=== PATIENT | male | born 1965 | race Hispanic/Latino ===

== ENCOUNTER 2018-10-01 09:43 | Outpatient (CLI) | payer BC ==
--- NOTE | 2018-10-01 12:27 | RAD ---
LUMBAR SPINE: INDICATIONS: Low back pain. Lumbar radiculopathy. TECHNIQUE: Four views obtained. An AP view, along with lateral views with neutral, flexion, and extension posit ions, obtained. FINDINGS: Lumbar vertebrae maintain normal height and alignment. Disk spaces are normally maintained. There i s mild degenerative spurring, and there is mild facet hypertrophy present. No evidence of spondyloli sthesis. No significant change in alignment with flexion or extension. IMPRESSION: There are mild degenerative changes of the lumbar spine. Alignment is normally maintained. POS: [facility]
--- NOTE | 2018-10-01 15:38 | MRI ---
MRI LUMBAR SPINE: 10/01/2018 HISTORY: Low back pain. Lumbar radiculopathy. TECHNIQUE: Multiplanar, multisequence MR imaging of the lumbar spine is obtained without contrast. FINDINGS: Sagittal STIR imaging demonstrates no focal area of osseous marrow edema. There is no significant anterolisthesis or retrolisthesis noted within the lumbar spine. On the basi s of five lumbar type vertebral bodies, the conus medullaris terminates at T12-L1. T12-L1: Intervertebral disk height and signal intensity appear within normal limits with no signific ant central canal or neural foraminal stenosis. L1-L2: Intervertebral disk height and signal intensity is within normal limits with no significant c entral canal or neural foraminal stenosis. L2-L3: There is mild bilateral facet hypertrophy. Intervertebral disk height and signal intensity a re within normal limits. No significant central canal or neural foraminal stenosis. L3-L4: Mild bilateral facet hypertrophy. No significant central canal or neural foraminal stenosis. L4-L5: Intervertebral disk height and signal intensity appear within normal limits. There is a smal l central disk protrusion with no associated central canal stenosis. There is bilateral facet hypert rophy with mild bilateral neural foraminal stenosis, right greater than left. L5-S1: There is disk space narrowing and disk desiccation. No significant central canal stenosis. There is bilateral facet hypertrophy with mild/moderate bilateral neural foraminal stenosis, left gre ater than right. The imaged retroperitoneal structures appear grossly unremarkable. Benign hemangioma noted in the L3 vertebral body. IMPRESSION: Lower lumbar spine degenerative change, as detailed above, most prominent at L5-S1 and, to a lesser d egree, at L4-L5. POS: [facility]
--- NOTE | 2018-10-01 16:03 | MRI ---
MRI THORACIC SPINE WITHOUT CONTRAST: HISTORY: Thoracic spine pain. COMPARISON: None. FINDINGS: There is overall appropriate T1 marrow signal intensity of the thoracic vertebrae. There is intrinsi c T1 and T2 hyperintensity along the inferior end plate of T7 without evidence of edema suggesting ty pe II Modic change. Additionally, there is subtle T1 and T2 hyperintensity without significant edema along the superior end plate of T8-T9. Small remote Schmorl's node is favored. There appears to be a small focus of acute edema in the anterior inferior aspect of T10. There is an acute Schmorl's no de with moderate loss of vertebral body height at T8. There is associated minimal edema. No signifi cant retropulsion. Visualized mediastinal structures, lung parenchyma, and solid organs are unremarkable. Probable para pelvic cyst in the left renal pelvis. The thoracic cord has a normal size and signal intensity. There is no significant central canal sten osis. No significant neural foraminal narrowing. Conus medullaris terminates at the superior aspect of L1. At T7-T8, there is minimal left and right paracentral disk bulge. No significant central canal steno sis. IMPRESSION: 1. No significant central canal stenosis or foraminal narrowing throughout the thoracic spine. 2. Probable acute Schmorl's node with mild edema at the T8 vertebral body level. Additional chronic findings as above. Minimal end plate irregularity and edema at the inferior anterior aspect of T10. POS: [facility]
== END 2018-10-01 09:44 | disposition home or self-care (01) ==
LOC: TBSIIMAG 09:43
PROVIDERS: ATTEND Physician Assistant Surgical
DX: M54.5 Low back pain (principal); M47.26 Other spondylosis with radiculopathy, lumbar region; M51.44 Schmorl's nodes, thoracic region
CPT/HCPCS: 72110; 72146; 72148

== ENCOUNTER 2018-12-03 17:40 | Emergency (ER) | payer BC ==
[2018-12-03 18:33] LABS: #Basophils 0.1 thou/uL (0.0-0.2); #Eosinphils 0.2 thou/uL (0.0-0.7); #Lymphocytes 2.7 thou/uL (1.20-3.40); #Monocytes 0.7 thou/uL (0.11-0.59); #Neutrophils 6.1 thou/uL (1.40-6.50); %Basophils 0.9 % (0.0-1.0); %Eosinophils 2.4 % (0.0-10.0); %Lymphocytes 27.2 % (21.0-51.0); %Monocytes 7.2 % (0.0-10.0); %Neutrophils 62.3 % (42.0-75.0); Hemoglobin 15.7 g/dL (14.0-18.0); Mean Corpuscular HGB CONC 34.8 g/dL (32.0-36.0); Mean Corpuscular Hemoglobin 31.7 pg (27.0-31.0); Mean Corpuscular Volume 91.2 fL (78.0-98.0); Mean Platelet Volume 9.1 fL (7.4-10.4); Platelet Count 170 thou/uL (130-400); RBC Distribution Width 11.4 % (11.5-14.5); Red Blood Cell (RBC) Count 4.96 mill/uL (4.70-6.10); White Blood Cell (WBC) Count 9.8 thou/uL (4.8-10.8)
--- NOTE | 2018-12-03 18:56 | CT ---
CT ABDOMEN AND PELVIS WITHOUT CONTRAST: 12/03/18 HISTORY: Flank pain. FINDINGS: Lung bases are clear. No pericardial effusion. Diffuse hepatic steatosis. Focal round area of focal f atty sparing near the gallbladder fossa. No pericholecystic inflammation. The appendix is visualized and is normal. There is no nephroureterolithiasis or hydroureteronephrosis . No secondary evidence of recently passed stone. No dilated loops of large or small bowel. No retrop eritoneal adenopathy. Noncontrast evaluation of the spleen, pancreas and adrenal glands are unremarkable. Mild facet arthrosis lower lumbar spine. Bone island right inferior pubic ramus. Old T8 and T9 superi or end plate Schmorl's nodes. IMPRESSION: 1. No nephroureterolithiasis or hydroureteronephrosis. No secondary evidence of recently passed stone. 2. No acute inflammatory process in the abdomen or pelvis. Normal appendix. 3. Diffuse hepatic steatosis. POS: [facility]
[2018-12-03 19:03] LABS: ALT (SGPT) 40 U/L (8-55); AST (SGOT) 24 U/L (5-34); Albumin 4.7 g/dL (3.5-5.0); Alkaline Phosphatase 99 U/L (40-150); Anion Gap 12 mmol/L (10-20); BUN (Urea Nitrogen) 18 mg/dL (8.4-25.7); Bilirubin, Total 0.4 mg/dL (0.2-1.2); Calc. Creatinine Clearance 0 mL/min (70-130); Calcium 9.9 mg/dL (7.8-10.44); Carbon Dioxide 24 mmol/L (22-29); Chloride 104 mmol/L (98-107); Estimated GFR-MDRD 69; Globulin 3.6 g/dL (2.4-3.5); Glucose 103 mg/dL (70-105); Potassium 4.1 mmol/L (3.5-5.1); Protein, Total 8.3 g/dL (6.0-8.3); Sodium 136 mmol/L (136-145)
[2018-12-03 19:49] LABS: Bilirubin Negative (Negative); Blood, Urine Negative (Negative); Clarity CLEAR (Clear); Glucose, Urine (Dipstick) Negative (Negative); Leukocyte Negative (Negative); Nitrite Negative (Negative); Protein, Urine (Dipstick) Negative (Neg-Trace); Specific Gravity, Urine 1.018 (1.002-1.036); Urobilinogen 0.2 mg/dL (0.2-1.0); pH, Urine 5.5 (5.0-9.0)
[2018-12-03] MEDS ORDERED: HYDROcodone/Acetaminophen 5/325 mg Tablet ONE (20:00)
== END 2018-12-03 20:05 | disposition home or self-care (01) ==
LOC: ERS 17:40
DX: R10.9 Unspecified abdominal pain (principal)
CPT/HCPCS: 36415; 74176; 80053; 81003; 85025; 93005

== ENCOUNTER 2019-05-26 13:15 | Outpatient (CLI) | payer BC ==
--- NOTE | 2019-05-26 15:41 | RAD ---
[facility] VIEW ONLY: 05/26/19 HISTORY: MRI clearance. FINDINGS/IMPRESSION: No radiopaque foreign body is seen. POS: [facility]
--- NOTE | 2019-05-26 16:07 | MRI ---
THORACIC SPINE MRI WITHOUT CONTRAST: 05/26/19 HISTORY: Previous wedge compression fracture of the T9 level. Chronic pain. Pain is worsening. COMPARISON: 10/01/18. TECHNIQUE: A thoracic spine MRI is performed without intravenous gadolinium administration. Multisequential, mul tiplanar imaging is performed. FINDINGS: There is T1 and T2 marrow signal hypointensity associated with the T8 vertebral body compatible with previous vertebroplasty change. There is no significant STIR hyperintensity to suggest acute edema. W hen compared to the previous examination, there does appear to be slight loss of vertebral height at least along the anterior and mid aspect. There are chronic changes of the superior end plate of T9. O verall, there is appropriate T1 marrow signal intensity of the thoracic vertebrae. Chronic end plate changes along the inferior end plate of T4 and superior end plate of T5 are noted. There is chronic i rregularity involving the anterior inferior aspect of T10. No significant STIR hyperintensity to sugg est vertebral body edema or ligamentous injury. The visualized mediastinum, lung parenchyma and solid organs are unremarkable. No paraspinal mass, ly mphadenopathy, or hematoma. The thoracic cord has a normal size and signal intensity. No cord atrophy or cord malacia. T5-T6: Minimal disc bulge without significant central canal stenosis. T7-T8: Generalized disc bulge with mild central canal stenosis. The degree of central canal stenosis has not significantly changed when compared to the previous examination. Throughout the thoracic spine, neural foramina are patent. IMPRESSION: 1. Interval slight loss of vertebral body height at T8. There is evidence of previous vertebropl asty change. No evidence of acute edema. 2. Chronic end plate changes as described above. No acute fracture. POS: [facility]
== END 2019-05-26 13:16 | disposition home or self-care (01) ==
LOC: BICMRI 13:15
PROVIDERS: ATTEND Anesthesiology Pain Medicine
DX: S22.070A Wedge compression fracture of T9-T10 vertebra, initial encounter for closed fracture (principal)
CPT/HCPCS: 70210; 72146

== ENCOUNTER 2019-06-24 11:12 | Outpatient (CLI) | payer BC ==
--- NOTE | 2019-06-24 13:33 | RAD ---
LUMBAR SPINE 2 VIEWS: Date: 06/24/19 HISTORY: Back pain. Wedge compression first lumbar vertebra. FINDINGS: Lumbar vertebra maintain height and alignment. No evidence of wedge compression identified. Disc spac es are preserved. Mild degenerative spurring. There is wedge compression of the T9 vertebra with evidence of vertebroplasty at T8 which is incomple tely imaged. Degenerative changes in the lower thoracic spine noted but not well evaluated. IMPRESSION: Unremarkable lumbar spine. Changes in thoracic spine are noted as described. POS: [facility]
--- NOTE | 2019-06-24 13:34 | RAD ---
THORACIC SPINE 3 VIEWS: Date: 06/24/19 HISTORY: Wedge compression of 9th vertebra. FINDINGS: There is an anterior wedge compression of T9 and there is wedge compression deformity at T8 with vert ebroplasty changes. Minimal loss of height at T7. No evidence of acute fracture or compression. Findi ngs appear stable when compared to thoracic spine MRI dated 05/26/19. IMPRESSION: Wedge deformities of T8 and T9 appear stable from recent MRI. POS: [facility]
== END 2019-06-24 11:13 | disposition home or self-care (01) ==
LOC: BICRAD 11:12
PROVIDERS: ATTEND Anesthesiology Pain Medicine
DX: S32.010A Wedge compression fracture of first lumbar vertebra, initial encounter for closed fracture (principal); S22.070A Wedge compression fracture of T9-T10 vertebra, initial encounter for closed fracture; M43.8X4 Other specified deforming dorsopathies, thoracic region; M47.814 Spondylosis without myelopathy or radiculopathy, thoracic region; Z98.890 Other specified postprocedural states
CPT/HCPCS: 72072; 72100

== ENCOUNTER 2019-07-08 12:45 | Outpatient (CLI) | payer BC ==
--- NOTE | 2019-07-08 16:35 | MRI ---
MRI LUMBAR SPINE WITHOUT CONTRAST: Date: 07/08/19 COMPARISON: 10/01/18. HISTORY: Compression fracture of the L1 vertebral body. Bilateral leg and back pain. FINDINGS: Appropriate T1 marrow signal intensity of the lumbar vertebra. Lumbar spine vertebral body height is maintained. No fracture. No significant STIR hyperintensity to suggest vertebral body edema or ligame ntous injury. There are Type I and Type II Modic changes along the right aspect of the L5-S1 disc space, similar to the previous examination. There is intrinsic T1 and T2 hyperintensity along the left aspect of the L 3 vertebral body. Appropriate signal intensity of the visualized paraspinal muscles. Appropriate signal intensity of th e visualized solid organs. Parapelvic cysts in the left renal pelvis are once again demonstrated. Conus medullaris terminates at the upper aspect of L1. T12-L1: Adequate disc hydration. No significant central canal stenosis or foraminal narrowing. L1-L2: Adequate disc hydration. No significant central canal stenosis or foraminal narrowing. L2-L3: Adequate disc hydration. No significant central canal stenosis or foraminal narrowing. L3-L4: Adequate disc hydration. No significant central canal stenosis or foraminal narrowing. L4-L5: Adequate disc hydration. Central disc protrusion abuts the thecal sac. No significant central canal stenosis. Stable indentation upon the ventral thecal sac. Mild to moderate bilateral foraminal narrowing, unchanged. L5-S1: No significant posterior disc abnormality. No significant central canal stenosis. There is bi lateral facet hypertrophy. Moderate bilateral foraminal narrowing. IMPRESSION: Degenerative changes of the lumbar spine at L4-L5 and L5-S1 as detailed above. There is no significan t central canal stenosis. Stable neural foraminal narrowing at L4-L5 and L5-S1. POS: [facility]
--- NOTE | 2019-07-08 16:37 | MRI ---
THORACIC SPINE MRI WITHOUT CONTRAST: Date: 07/08/19 HISTORY: Compression fractures of the thoracic vertebra. COMPARISON: 05/26/19. FINDINGS: Stable kyphoplasty change at T8. There is stable mild loss of vertebral body height at T7 and T9. Add itionally, there is stable irregularity along the superior end plate of T5. Stable marrow signal larry ges along the anterior inferior aspect of T10. Overall, there is appropriate T1 marrow signal intensi ty of the thoracic vertebra. No STIR hyperintensity to suggest vertebral body edema from acute fractu re. No evidence of ligamentous injury. Stable mild kyphosis centered at the T7-T8 disc space. The thoracic cord has a normal size and signal intensity. No cord expansion or cord malacia. Througho ut the thoracic spine, neural foramina are patent. Visualized mediastinum, lung parenchyma, and solid organs are unremarkable. There is no significant stenosis of the central spinal canal. IMPRESSION: No significant interval change. POS: [facility]
== END 2019-07-08 12:46 | disposition home or self-care (01) ==
LOC: TBSIIMAG 12:45
PROVIDERS: ATTEND Anesthesiology Pain Medicine
DX: S32.010D Wedge compression fracture of first lumbar vertebra, subsequent encounter for fracture with routine healing (principal); S22.070D Wedge compression fracture of T9-T10 vertebra, subsequent encounter for fracture with routine healing; M47.816 Spondylosis without myelopathy or radiculopathy, lumbar region; M47.817 Spondylosis without myelopathy or radiculopathy, lumbosacral region; M48.061 Spinal stenosis, lumbar region without neurogenic claudication; M48.07 Spinal stenosis, lumbosacral region
CPT/HCPCS: 72146; 72148

== ENCOUNTER 2020-07-23 18:39 | Emergency (ER) | payer BC, OTHER ==
[2020-07-23 19:42] LABS: #Basophils 0.1 thou/uL (0.0-0.2); #Eosinphils 0.1 thou/uL (0.0-0.7); #Lymphocytes 2.5 thou/uL (1.20-3.40); #Neutrophils 8.6 thou/uL (1.40-6.50); %Basophils 0.6 % (0.0-1.0); %Eosinophils 1.1 % (0.0-10.0); %Lymphocytes 20.3 % (21.0-51.0); %Monocytes 8.3 % (0.0-10.0); %Neutrophils 69.8 % (42.0-75.0); Hemoglobin 17.2 g/dL (14.0-18.0); Mean Corpuscular HGB CONC 33.4 g/dL (32.0-36.0); Mean Corpuscular Hemoglobin 30.8 pg (27.0-31.0); Mean Corpuscular Volume 92.4 fL (78.0-98.0); Mean Platelet Volume 9.9 fL (7.4-10.4); Platelet Count 212 thou/uL (130-400); RBC Distribution Width 11.9 % (11.5-14.5); Red Blood Cell (RBC) Count 5.59 mill/uL (4.70-6.10); White Blood Cell (WBC) Count 12.3 thou/uL (4.8-10.8)
[2020-07-23 20:04] LABS: ALT (SGPT) 73 U/L (8-55); AST (SGOT) 41 U/L (5-34); Albumin 4.9 g/dL (3.5-5.0); Alkaline Phosphatase 89 U/L (40-110); Anion Gap 19 mmol/L (10-20); BUN (Urea Nitrogen) 13 mg/dL (8.4-25.7); Bilirubin, Total 0.9 mg/dL (0.2-1.2); Calc. Creatinine Clearance 0 mL/min (70-130); Calcium 9.9 mg/dL (7.8-10.44); Carbon Dioxide 20 mmol/L (22-29); Chloride 108 mmol/L (98-107); Estimated GFR-MDRD 64; Globulin 3.7 g/dL (2.4-3.5); Glucose 131 mg/dL (70-105); Potassium 4.2 mmol/L (3.5-5.1); Protein, Total 8.6 g/dL (6.0-8.3); Sodium 143 mmol/L (136-145)
[2020-07-23 21:07] LABS: Actual Bicarbonate (HCO3a) 19.1 mEq/L (22-28); Analyzer IN Cardio ER; Base Excess (BEa) -4.5 mEq/L (-2.0 to +3.0); CO2 Tension 31.9 mmHg (35.0-45.0); Calcium, Ionized (arterial) 1.18 mmol/L (1.12-1.30); Carboxyhemoglobin (COHb) 0.4 gm% (0.0-3.0); Hemoglobin (Hb) 15.8 g/dL (14.0-18.0)
[2020-07-23 21:08] LABS: ALV-art Gradient 40.855 (0-20); Puncture Site LRA
[2020-07-24 16:04] LABS: SARS-CoV-2 MS2 Positive; SARS-CoV-2 N Gene Positive; SARS-CoV-2 S Gene Positive; SARS-CoV-2 by NAA DETECTED (NotDetected); SARS-CoV-2 orf1ab Positive
== END 2020-07-23 22:00 | disposition home or self-care (01) ==
LOC: ERS 18:39
DX: U07.1 COVID-19 (principal)
CPT/HCPCS: 36415; 80053; 82805; 85025; 87635; 96360; 96361; U0003

== ENCOUNTER 2020-10-22 12:42 | Outpatient (CLI) | payer BC ==
--- NOTE | 2020-10-22 14:59 | MRI ---
MRI THORACIC SPINE WITHOUT CONTRAST: Date: 10/22/2020 INDICATION: Compression fractures. Comparison made to MRI thoracic spine dated 07/08/2019. FINDINGS: There are now vertebroplasty changes seen at T7 vertebra when compared to the prior study. Mild anter ior wedging at T7 is stable. Anterior wedging and vertebroplasty changes at T8 are again noted and appear stable. Anterior wedging of T9 and T10 appear stable. Degenerative disc changes at T7-T8, T8-T9, and T9-T10 appear stable. The other thoracic vertebra maintain height and alignment with no interval change. Minimal disc bulge at T7-T8 is stable in appearance. No cord compression. No central canal stenosis. Thoracic cord signal appears normal. IMPRESSION: 1. There are new vertebroplasty changes at T7. The anterior wedging at T7 is stable. 2. Vertebroplasty change and anterior wedge compression at T8 appears stable. 3. Mild loss of anterior height at T9 and T10 appears stable. Degenerative changes are noted with an terior osteophytes. No evidence of edema or acute fracture. POS: [facility]
--- NOTE | 2020-10-22 15:15 | MRI ---
MRI Lumbar Spine Noncontrast: HISTORY: Lumbar foraminal stenosis. Patient states back pain for 6 years. COMPARISON: 07/08/2019. FINDINGS: The visualized retroperitoneal structures demonstrate a normal appearance. Conus medullaris is normal in morphology and terminates at the L1 level. Paravertebral soft tissues have a normal appearance. Oval-shaped area of increased T1 and T2-weighted signal intensity in the L3 vertebral body is again s een likely due to hemangioma versus focal area of fat. Endplate degenerative changes at the L5-S1 level are again seen. T12-L1: There is no disc bulge or disc herniation. Central spinal canal and neural foramina are paten t. L1-2: There is no disc bulge or disc herniation. Central spinal canal and neural foramina are patent. L2-3: There is no disc bulge or disc herniation. Central spinal canal and neural foramina are patent. Mild facet degenerative changes are seen. L3-4: There is no disc bulge or disc herniation. Central spinal canal and neural foramina are patent. L4-5: There is no disc bulge. Central disc protrusion seen on prior study is less apparent on current exam. Mild facet degenerative changes are present at this level. Central spinal canal is patent. There is mild bilateral neural foraminal narrowing. L5-S1: Mild disc osteophyte complex is present with mild facet degenerative changes again noted as we ll. Findings result in moderate bilateral neural foraminal narrowing which is overall similar to prior study. Central spinal canal remains patent. IMPRESSION: Degenerative changes at the L4-5 and L5-S1 levels not significantly changed when compared to prior ex am. Moderate bilateral neural foraminal narrowing is present at the L5-S1 level.
== END 2020-10-22 12:43 | disposition home or self-care (01) ==
LOC: BICMRI 12:42
PROVIDERS: ATTEND Nurse Practitioner Family
DX: S22.060S Wedge compression fracture of T7-T8 vertebra, sequela (principal); M48.061 Spinal stenosis, lumbar region without neurogenic claudication; M47.816 Spondylosis without myelopathy or radiculopathy, lumbar region; M47.817 Spondylosis without myelopathy or radiculopathy, lumbosacral region; M48.07 Spinal stenosis, lumbosacral region; M47.24 Other spondylosis with radiculopathy, thoracic region; M25.78 Osteophyte, vertebrae
CPT/HCPCS: 72146; 72148

== ENCOUNTER 2022-05-12 15:44 | Outpatient (CLI) | payer BC | END 2022-05-12 15:45 | disposition home or self-care (01) | LOC: BICRAD 15:44 | PROVIDERS: ATTEND Family Medicine | DX: R63.4 Abnormal weight loss (principal) | CPT/HCPCS: 71046 ==